=== PATIENT | male | born 1970 | race Caucasian/White ===

== ENCOUNTER 2017-10-27 08:26 | Emergency (ER) | payer MEDICARE, MEDICAID ==
[~2017-10-27] VITALS: Ht 165.1 cm; Wt 66.9 kg
[2017-10-27 10:01] LABS: PATH.CAST-FLAG NOT PRESENT; SPERM-FLAG NOT PRESENT; SRC-FLAG NOT PRESENT; XTAL-FLAG NOT PRESENT; YLC-FLAG NOT PRESENT
[2017-10-27] MEDS ORDERED: FLUO10CA7 PO (10:48)
[2017-10-27] MEDS ORDERED: ARIP10TA33 PO (10:48)
[2017-10-27] MEDS ORDERED: LISI-167 PO (10:48)
[2017-10-27] MEDS ORDERED: GABA300C10 PO ×2 (10:48)
[2017-10-27 10:55] VITALS: BP 150/93
== END 2017-10-27 11:34 | disposition home or self-care (01) ==
LOC: ED 10:17
DX: J20.8 Acute bronchitis due to other specified organisms (principal); B96.89 Other specified bacterial agents as the cause of diseases classified elsewhere; R31.0 Gross hematuria; I10 Essential (primary) hypertension; F32.9 Major depressive disorder, single episode, unspecified
CPT/HCPCS: 71020; 81001; 99285

== ENCOUNTER 2017-11-03 16:21 | Inpatient (IN) | payer MEDICARE, MEDICAID ==
[~2017-11-03] VITALS: Ht 175.3 cm; Wt 64.7 kg
[~2017-11-03 16:21] MED LIST: ARIP10TA33 PO; FLUO10CA7 PO; GABA300C10 PO; LISI-167 PO
[2017-11-03] MEDS ORDERED: SODIUM CHLORIDE 0.9% 1,000 ML IV ONE (16:46)
[2017-11-03] MEDS ORDERED: AMPICILLIN/SULBACTAM 3 GM in SODIUM CHLORIDE 0.9% 100 ML IVPB ONE (17:00)
[2017-11-03] MEDS ORDERED: SODIUM CHLORIDE 0.9% 1,000ML IVBOLUS ONE (17:00)
[2017-11-03] MEDS ORDERED: VANCOMYCIN 1,400 MG in SODIUM CHLORIDE 0.9% 250 ML IV ONE (17:00)
[2017-11-03] MEDS ORDERED: VANCOMYCIN PER PHARMACY MC ONE (17:00)
[2017-11-03] MEDS ORDERED: ACETAMINOPHEN 500 MG TABLET PO ONE (17:00)
[2017-11-03 17:18] LABS: MEAN CORPUSCULAR HEMOGLOBIN 29.5 pg (27.5-34.5); MEAN CORPUSCULAR HGB CONC 33.1 g/dL (33.2-36.2); MEAN CORPUSCULAR VOLUME 89.2 fL (81-97); MEAN PLATELET VOLUME 8.3 fL (7.4-10.4); PLATELET COUNT 285 x10^3/uL (130-400); RED BLOOD COUNT 4.25 x10^6/uL (4.38-5.82); RED CELL DISTRIBUTION WIDTH 13.7 % (9.4-14.8)
[2017-11-03 17:30] LABS: ALBUMIN 2.9 g/dL (3.4-5.0); ANION GAP 8 mmol/L (5-15); CALCIUM 8.4 mg/dL (8.5-10.1); CHLORIDE 96 mmol/L (98-107)
[2017-11-03] MEDS ORDERED: ACETAMINOPHEN 500 MG TABLET ONE (17:46)
[2017-11-03 17:49] LABS: MD YES
[2017-11-03 17:51] LABS: BAND#(MANUAL) 0.35 x10^3/uL; BANDS%(MANUAL) 2 % (0-7); LYMPH#(MANUAL) 1.76 x10^3/uL (1-3.4); LYMPHS% (MANUAL) 10 % (22-44); MONOS% (MANUAL) 4 % (2-9); SEG#(MANUAL) 14.78 x10^3/uL (1.8-6.8); SEGS% (MANUAL) 84 % (42-75)
[2017-11-03 17:52] LABS: ANISOCYTOSIS 1+
[2017-11-03 17:53] LABS: <PLATELET ESTIMATE> ADEQUATE; <PLT MORPHOLOGY> NORMAL PLT MORPH; TOXIC GRAN 1+
[2017-11-03] MEDS ORDERED: DIPHENHYDRAMINE 50 MG/ML, 1ML ONE (18:03)
[2017-11-03] MEDS ORDERED: FAMOTIDINE 20 MG/2 ML ONE (18:04)
[2017-11-03] MEDS ORDERED: FAMOTIDINE 20 MG/2 ML IVPush ONE (18:30)
[2017-11-03] MEDS ORDERED: DIPHENHYDRAMINE 50 MG/ML, 1ML IVPush ONE (18:30)
[2017-11-03 19:10] LABS: TROPONIN I < 0.015 ng/mL (0.000-0.045)
[2017-11-03 21:30] VITALS: BP 121/78
[2017-11-03] MEDS ORDERED: ONDANSETRON ODT 4 MG PO PRN (22:00)
[2017-11-03] MEDS ORDERED: hydrALAzine 20 MG/ML, 1ML IVPush PRN (22:00)
[2017-11-03] MEDS ORDERED: DIPHENHYDRAMINE 25 MG CAPSULE PO PRN (22:00)
[2017-11-03] MEDS ORDERED: DOCUSATE 100 MG CAPSULE PO PRN (22:00)
[2017-11-03] MEDS ORDERED: AMPICILLIN/SULBACTAM 3 GM IM SCH (23:00)
[2017-11-03 23:43] LABS: MICROSCOPIC INDICATED
[2017-11-03 23:51] LABS: CULTURE INDICATED? NO
[2017-11-04] MEDS: ENOXAPARIN 40 MG/0.4 ML SQ SCH ×2 (00:10→21:55)
[2017-11-04] MEDS: NICOTINE 14MG/24 HR PATCH.TD24 TD SCH ×2 (00:11→21:55)
[2017-11-04] MEDS ORDERED: AMPICILLIN/SULBACTAM 3 GM in SODIUM CHLORIDE 0.9% 100 ML IV SCH (00:30)
[2017-11-04] MEDS: GUAIFENESIN/DM 100-10MG, 5ML UDC PO PRN ×2 (00:49→05:29)
[2017-11-04] MEDS: AMPICILLIN/SULBACTAM 3 GM in SODIUM CHLORIDE 0.9% 100 ML IV SCH ×3 (00:49→16:40)
[2017-11-04 02:40] VITALS: BP 126/87
[2017-11-04] MEDS: ACETAMINOPHEN 325 MG TABLET PO PRN ×3 (05:29→21:56)
[2017-11-04] MEDS ORDERED: PNEUMOCOCCAL 23 VACCINE IM-VACC ONE (06:30)
[2017-11-04] MEDS ORDERED: FLU VACC QS2017-18 (36MOS+) UP/PF 0.5 ML IM-VACC ONE (06:30)
[2017-11-04] MEDS ORDERED: AMPICILLIN/SULBACTAM 3 GM IVPB SCH (07:00)
[2017-11-04 08:05] VITALS: BP 126/88
[2017-11-04 14:00] VITALS: BP 137/65
[2017-11-04] MEDS: SODIUM CHLORIDE 0.9% 1,000 ML IV SCH (15:15)
[2017-11-04 19:20] VITALS: BP 133/91
[2017-11-05] MEDS: AMPICILLIN/SULBACTAM 3 GM in SODIUM CHLORIDE 0.9% 100 ML IV SCH ×3 (00:42→17:02)
[2017-11-05 00:43] VITALS: BP 143/96
[2017-11-05 05:27] LABS: BASOPHILS % (AUTO) 0 % (0-1); EOSINOPHILS # (AUTO) 0.19 x10^3/uL (0-0.4); EOSINOPHILS % (AUTO) 2 % (1-7); LYMPHOCYTES # (AUTO) 0.92 x10^3/uL (1-3.4); LYMPHOCYTES % (AUTO) 8 % (22-44); MD NO; MEAN CORPUSCULAR HEMOGLOBIN 29.8 pg (27.5-34.5); MEAN CORPUSCULAR HGB CONC 33.4 g/dL (33.2-36.2); MEAN CORPUSCULAR VOLUME 89.2 fL (81-97); MEAN PLATELET VOLUME 8.1 fL (7.4-10.4); MONOCYTES # (AUTO) 0.72 x10^3/uL (0.2-0.8); MONOCYTES % (AUTO) 6 % (2-9); NEUTROPHILS # (AUTO) 10.53 x10^3/uL (1.8-6.8); NEUTROPHILS % (AUTO) 85 % (42-75); PLATELET COUNT 257 x10^3/uL (130-400); RED BLOOD COUNT 4.02 x10^6/uL (4.38-5.82); RED CELL DISTRIBUTION WIDTH 14.1 % (9.4-14.8)
[2017-11-05 05:33] LABS: ANION GAP 7 mmol/L (5-15); CALCIUM 8.3 mg/dL (8.5-10.1); CHLORIDE 104 mmol/L (98-107); CREATININE 0.87 mg/dL (0.7-1.3)
[2017-11-05] MEDS: SODIUM CHLORIDE 0.9% 1,000 ML IV SCH ×2 (05:58→18:11)
[2017-11-05 08:17] VITALS: BP 139/100
[2017-11-05] MEDS ORDERED: MAGNESIUM SULFATE PMX 2GM/50ML 50 ML IV ONE (09:30)
[2017-11-05 14:29] VITALS: BP 144/99
[2017-11-05] MEDS: ACETAMINOPHEN 325 MG TABLET PO PRN (18:13)
[2017-11-05 19:37] VITALS: BP 134/88
[2017-11-05] MEDS: ENOXAPARIN 40 MG/0.4 ML SQ SCH (21:03)
[2017-11-05] MEDS: NICOTINE 14MG/24 HR PATCH.TD24 TD SCH (21:04)
[2017-11-06] MEDS: AMPICILLIN/SULBACTAM 3 GM in SODIUM CHLORIDE 0.9% 100 ML IV SCH ×3 (00:49→17:18)
[2017-11-06] MEDS ORDERED: PROMETHAZINE 25 MG/ML, 1ML IM PRN (01:00)
[2017-11-06 03:04] VITALS: BP 145/98
[2017-11-06] MEDS: SODIUM CHLORIDE 0.9% 1,000 ML IV SCH ×2 (03:54→14:10)
[2017-11-06 07:35] VITALS: BP 139/98
[2017-11-06 14:00] VITALS: BP 143/94
[2017-11-06] MEDS: NICOTINE 14MG/24 HR PATCH.TD24 TD SCH (21:54)
[2017-11-06] MEDS: ENOXAPARIN 40 MG/0.4 ML SQ SCH (21:54)
[2017-11-06 21:58] VITALS: BP 147/93
[2017-11-07] MEDS: SODIUM CHLORIDE 0.9% 1,000 ML IV SCH (00:34)
[2017-11-07] MEDS: AMPICILLIN/SULBACTAM 3 GM in SODIUM CHLORIDE 0.9% 100 ML IV SCH ×2 (00:34→08:45)
[2017-11-07 03:45] VITALS: BP 135/93
[2017-11-07 07:21] VITALS: BP 148/94
[2017-11-07] MEDS ORDERED: AMOX1TAB64 PO (08:51)
== END 2017-11-07 11:41 | disposition home or self-care (01) | DRG 871 ==
LOC: ED 17:35 → EDIP 19:14 → 4EST 20:06 → 4NOR 11-05 06:54 → DCLOUNGE 11-07 11:15
PROVIDERS: ADMIT Surgery; ATTEND Hospitalist
DX: A41.9 Sepsis, unspecified organism (principal); E43 Unspecified severe protein-calorie malnutrition; L03.115 Cellulitis of right lower limb; F33.9 Major depressive disorder, recurrent, unspecified; E87.1 Hypo-osmolality and hyponatremia; F17.290 Nicotine dependence, other tobacco product, uncomplicated; I10 Essential (primary) hypertension; E83.42 Hypomagnesemia; D64.9 Anemia, unspecified; F12.90 Cannabis use, unspecified, uncomplicated; F40.00 Agoraphobia, unspecified; J20.9 Acute bronchitis, unspecified; Z80.8 Family history of malignant neoplasm of other organs or systems; F45.22 Body dysmorphic disorder; Z79.899 Other long term (current) drug therapy; Z68.21 Body mass index [BMI] 21.0-21.9, adult
CPT/HCPCS: 36415; 71010; 80048; 81001; 82040; 83605; 83735; 84145; 84484; 85025; 87040; 90686; 90732; 93005; 96365; 96366; 96368; 96375; J0295; J1650; J2550; J3370; Q0162; J1200; J3475; J7030; J7050; Q0163; S0028

== ENCOUNTER 2017-11-26 14:48 | Emergency (ER) | payer MEDICAID, MEDICARE ==
[~2017-11-26] VITALS: Ht 165.1 cm; Wt 64.0 kg
[~2017-11-26 14:48] MED LIST changes: +AMOX1TAB64 PO
[2017-11-26 14:49] VITALS: BP 148/98
[2017-11-26] MEDS ORDERED: METHOCARBAMOL 750 MG TABLET ONE (15:59)
[2017-11-26] MEDS ORDERED: METHOCARBAMOL 750 MG TABLET PO ONE (16:00)
== END 2017-11-26 16:02 | disposition home or self-care (01) ==
LOC: ED 15:45
DX: M25.532 Pain in left wrist (principal)
CPT/HCPCS: 99284

== ENCOUNTER 2018-04-08 09:06 | Emergency (ER) | payer MEDICARE ==
[~2018-04-08] VITALS: Ht 162.6 cm; Wt 66.0 kg
[2018-04-08 09:52] LABS: BASOPHILS # (AUTO) 0.07 x10^3/uL (0-0.1); BASOPHILS % (AUTO) 1 % (0-1); EOSINOPHILS # (AUTO) 0.62 x10^3/uL (0-0.4); EOSINOPHILS % (AUTO) 6 % (1-7); LYMPHOCYTES # (AUTO) 2.07 x10^3/uL (1-3.4); LYMPHOCYTES % (AUTO) 20 % (22-44); MD NO; MEAN CORPUSCULAR HEMOGLOBIN 29.5 pg (27.5-34.5); MEAN CORPUSCULAR HGB CONC 34.2 g/dL (33.2-36.2); MEAN CORPUSCULAR VOLUME 86.2 fL (81-97); MEAN PLATELET VOLUME 7.8 fL (7.4-10.4); MONOCYTES # (AUTO) 0.65 x10^3/uL (0.2-0.8); MONOCYTES % (AUTO) 6 % (2-9); NEUTROPHILS # (AUTO) 6.88 x10^3/uL (1.8-6.8); NEUTROPHILS % (AUTO) 67 % (42-75); PLATELET COUNT 267 x10^3/uL (130-400); RED BLOOD COUNT 4.24 x10^6/uL (4.38-5.82); RED CELL DISTRIBUTION WIDTH 14.8 % (9.4-14.8)
[2018-04-08] MEDS ORDERED: AMPICILLIN/SULBACTAM 3 GM in SODIUM CHLORIDE 0.9% 100 ML IVPB ONE (11:30)
[2018-04-08] MEDS ORDERED: SODIUM CHLORIDE FLUSH 10ML SYR IVF ONE (11:30)
[2018-04-08 12:51] VITALS: BP 142/92
== END 2018-04-08 13:01 | disposition home or self-care (01) ==
LOC: ED 12:55
DX: L03.113 Cellulitis of right upper limb (principal); I10 Essential (primary) hypertension; F45.22 Body dysmorphic disorder; F32.9 Major depressive disorder, single episode, unspecified; F17.210 Nicotine dependence, cigarettes, uncomplicated
CPT/HCPCS: 36415; 73130; 85025; 96365; 99285; J0295

== ENCOUNTER 2018-07-25 08:50 | Emergency (ER) | payer MEDICARE ==
[~2018-07-25] VITALS: Ht 167.6 cm; Wt 64.2 kg
[2018-07-25 08:58] VITALS: BP 169/100
== END 2018-07-25 09:59 | disposition home or self-care (01) ==
LOC: ED 09:45
DX: H60.501 Unspecified acute noninfective otitis externa, right ear (principal); I10 Essential (primary) hypertension; Z76.0 Encounter for issue of repeat prescription
CPT/HCPCS: 99283

== ENCOUNTER 2018-08-08 07:03 | Emergency (ER) | payer MEDICARE ==
[~2018-08-08] VITALS: Ht 167.6 cm; Wt 66.7 kg
[2018-08-08] MEDS ORDERED: ERYTHROMYCIN OPHTH 0.5%, 1GM RIGHTEYE ONE (07:30)
[2018-08-08 08:07] VITALS: BP 159/98
== END 2018-08-08 08:09 | disposition home or self-care (01) ==
LOC: ED 08:03
DX: H10.021 Other mucopurulent conjunctivitis, right eye (principal); I10 Essential (primary) hypertension; F17.200 Nicotine dependence, unspecified, uncomplicated; Z88.1 Allergy status to other antibiotic agents
CPT/HCPCS: 99283

== ENCOUNTER 2018-10-31 22:58 | Emergency (ER) | payer MEDICARE ==
[~2018-10-31] VITALS: Ht 167.6 cm; Wt 69.6 kg
[2018-10-31 23:00] VITALS: BP 195/139
== END 2018-10-31 23:34 | disposition left against medical advice (07) ==
LOC: ED 23:10
DX: K13.79 Other lesions of oral mucosa (principal); Z53.21 Procedure and treatment not carried out due to patient leaving prior to being seen by health care provider

== ENCOUNTER 2018-12-28 14:24 | Emergency (ER) | payer MEDICARE ==
--- NOTE | 2018-12-28 14:40 | NUR ---
PT NOT IN LOBBY FOR VITALS @ [id number]
--- NOTE | 2018-12-28 14:50 | NUR ---
PT NOT IN LOBBY FOR VITALS @ [id number]
== END 2018-12-28 17:11 | disposition left against medical advice (07) ==
LOC: ED 17:05
DX: S69.91XA Unspecified injury of right wrist, hand and finger(s), initial encounter (principal); Z53.21 Procedure and treatment not carried out due to patient leaving prior to being seen by health care provider

== ENCOUNTER 2019-12-08 14:32 | Emergency (ER) | payer SELFPAY ==
[~2019-12-08] VITALS: Ht 165.1 cm; Wt 70.0 kg
[2019-12-08 14:34] VITALS: BP 155/119
--- NOTE | 2019-12-08 15:52 | NUR ---
pt ambulated to the bathroom and returned to room. pt here for "hearing problems"
[2019-12-08] MEDS ORDERED: CIPROFLOXACIN/HYDROCORTISONE EAR SUSP 0.2-1%, 10ML RIGHT EAR ONE (16:00)
--- NOTE | 2019-12-08 16:41 | NUR ---
Patient/Caregiver given discharge instructions and they have confirmed that they understand the instructions. PT VERBALIZED UNDERSTANDING TO F/U WITH ENT IN TWO WEEKS OR RETURN TO ER FOR WOUND RECHECK. PT STATED HE WILL FILL SCRIPT AND TAKE MEDICATIONS RECOMMENDED. Patient ambulatory with steady gait.
== END 2019-12-08 21:48 | disposition home or self-care (01) ==
LOC: ED 16:50
DX: H66.001 Acute suppurative otitis media without spontaneous rupture of ear drum, right ear (principal); I10 Essential (primary) hypertension; F17.200 Nicotine dependence, unspecified, uncomplicated
CPT/HCPCS: 99283

== ENCOUNTER 2020-03-27 19:22 | Emergency (ER) | payer MEDICARE, MEDICAID ==
[~2020-03-27] VITALS: Ht 165.1 cm; Wt 65.0 kg
[~2020-03-27 19:22] MED LIST changes: +FLUO10CA14 PO; -FLUO10CA7 PO
[2020-03-27 19:25] VITALS: BP 177/120
== END 2020-03-27 20:22 | disposition home or self-care (01) ==
LOC: ED 20:10
DX: T16.1XXA Foreign body in right ear, initial encounter (principal); T16.2XXA Foreign body in left ear, initial encounter; I10 Essential (primary) hypertension; X58.XXXA Exposure to other specified factors, initial encounter; Y93.89 Activity, other specified; Y92.89 Other specified places as the place of occurrence of the external cause; Y99.8 Other external cause status
CPT/HCPCS: 99281

== ENCOUNTER 2020-09-06 17:11 | Emergency (ER) | payer MEDICARE, MEDICAID ==
[~2020-09-06 17:11] MED LIST changes: +Sulfameth./Trimethoprim Ds PO
--- NOTE | 2020-09-06 18:11 | NUR ---
no answer x 3
== END 2020-09-06 18:13 | disposition left against medical advice (07) ==
LOC: ED 18:00
DX: M79.641 Pain in right hand (principal); Z53.21 Procedure and treatment not carried out due to patient leaving prior to being seen by health care provider

== ENCOUNTER 2020-09-07 15:29 | Emergency (ER) | payer MEDICARE, MEDICAID ==
[~2020-09-07] VITALS: Ht 167.6 cm; Wt 67.0 kg
--- NOTE | 2020-09-07 15:41 | NUR ---
NIL X1
[2020-09-07 15:50] VITALS: BP 134/82
[2020-09-07] MEDS ORDERED: NEOSPORIN OINT. PKT 1 PACKET ONE (16:26)
--- NOTE | 2020-09-07 16:45 | NUR ---
Patient given discharge instructions and they have confirmed that they understand the instructions. Patient ambulatory with steady gait.
== END 2020-09-07 16:50 | disposition home or self-care (01) ==
LOC: ED 16:21
DX: S61.211D Laceration without foreign body of left index finger without damage to nail, subsequent encounter (principal); X58.XXXD Exposure to other specified factors, subsequent encounter
CPT/HCPCS: 99282; 99283

== ENCOUNTER 2020-09-10 11:22 | Emergency (ER) | payer MEDICARE, MEDICAID ==
[~2020-09-10] VITALS: Ht 160 cm; Wt 69.7 kg
[2020-09-10 11:31] VITALS: BP 150/102
[2020-09-10] MEDS ORDERED: NEOSPORIN OINT. PKT 1 PACKET ONE (11:41)
== END 2020-09-10 11:49 | disposition home or self-care (01) ==
LOC: ED 11:43
DX: S61.411D Laceration without foreign body of right hand, subsequent encounter (principal); Z48.02 Encounter for removal of sutures; X58.XXXD Exposure to other specified factors, subsequent encounter
CPT/HCPCS: 99281

== ENCOUNTER 2021-05-05 07:58 | Emergency (ER) | payer MEDICARE, MEDICAID ==
[~2021-05-05] VITALS: Ht 162.6 cm; Wt 70.1 kg
[~2021-05-05 07:58] MED LIST changes: -FLUO10CA14 PO; +FLUO10CA15 PO
--- NOTE | 2021-05-05 08:02 | NUR ---
1ST CALL NOT IN LOBBY
--- NOTE | 2021-05-05 08:19 | NUR ---
AMY KEITH BEDSIDE. PT C/O RIGHT, POSTERIOR SHOULDER PAIN, ITCHING, AND SWELLING. PT STATES HE HAS HAD THE SYMPTOMS X 2 DAYS. PT DENIES OTHR PHYSICAL SYMPTOMS.
[2021-05-05 08:32] VITALS: BP 124/74
== END 2021-05-05 08:34 | disposition home or self-care (01) ==
LOC: ED 08:20
DX: L02.212 Cutaneous abscess of back [any part, except buttock and flank] (principal); I10 Essential (primary) hypertension
CPT/HCPCS: 99283

== ENCOUNTER 2021-05-23 12:22 | Emergency (ER) | payer MEDICAID, MEDICARE ==
[~2021-05-23] VITALS: Ht 165.1 cm; Wt 75.0 kg
--- NOTE | 2021-05-23 12:35 | NUR ---
JODI AFTER PT RAN OUT OF [facility] X 4 DAYS AND NOW REPORTS HE FEELS LIKE HIS BLOOD PRESSURE IS HIGH AND HAS BEEN SOB AND HAS SOME BLURRY VISON. DENIES MARCOS AND FLU LIKE SYMPTOMS. BP 170/125 PER EMS ON ROUTE. PT TO BED WITH STEADY GAIT. ATTACHED TO MONITORS AND POSTIONED TO COMFORT. LEXX. DULCE. AWAITING ORDERS.
[2021-05-23] MEDS ORDERED: LISINOPRIL 20 MG TABLET ONE (13:22)
--- NOTE | 2021-05-23 13:24 | NUR ---
PT MEDICATED PER EMAR.
[2021-05-23] MEDS ORDERED: LISINOPRIL 20 MG TABLET PO ONE (13:30)
[2021-05-23 14:30] VITALS: BP 150/109
--- NOTE | 2021-05-23 14:41 | NUR ---
Patient given discharge instructions and they have confirmed that they understand the instructions. Patient ambulatory with steady gait. NAD, all questions answered appropriately, denies additional needs at this time. No personal belongings left in room after discharge.
== END 2021-05-23 14:44 | disposition home or self-care (01) ==
LOC: ED 14:09
DX: I10 Essential (primary) hypertension (principal); R06.02 Shortness of breath; H57.89 Other specified disorders of eye and adnexa; Z76.0 Encounter for issue of repeat prescription; R00.0 Tachycardia, unspecified
CPT/HCPCS: 93005; 99283

== ENCOUNTER 2021-06-22 12:25 | Emergency (ER) | payer MEDICARE ==
[~2021-06-22] VITALS: Ht 165.1 cm; Wt 65.3 kg
--- NOTE | 2021-06-22 15:55 | NUR ---
TO ROOM FROM LOBBY.
--- NOTE | 2021-06-22 16:11 | NUR ---
PT TO ROOM 18 W/ C/O LOWER PELVIC ABD PAIN STTRATED 2 DAYS AGO. PT HAS PAIN BILAT FLANK ON PALPATION. PT STATES HE BELIEVES HE HAS A UTI. DENIES ANY FEVERS/CHILLS. PT RESTING ON GURNEY. NADN. MONITORS APPLIED. VSS. WARM BLANKET PROVIDED. CALL LIGHT IN REACH.
[2021-06-22 16:43] LABS: MICROSCOPIC INDICATED
--- NOTE | 2021-06-22 17:08 | NUR ---
PT CHART REVIEWED AND PLACED FOR RECHECK.
[2021-06-22 17:11] VITALS: BP 136/95
--- NOTE | 2021-06-22 17:11 | NUR ---
PT RESTING ON GURNEY. NADN. HALLMAN.
== END 2021-06-22 18:01 | disposition home or self-care (01) ==
LOC: ED 13:53
DX: N30.01 Acute cystitis with hematuria (principal); R30.0 Dysuria; Z59.0 Homelessness; I10 Essential (primary) hypertension
CPT/HCPCS: 81001; 87086; 99283

== ENCOUNTER 2021-07-06 13:31 | Emergency (ER) | payer MEDICARE, MEDICAID ==
[~2021-07-06] VITALS: Ht 165.1 cm; Wt 80.0 kg
[~2021-07-06 13:31] MED LIST changes: +TAMS-11 PO
[2021-07-06 13:34] VITALS: BP 116/74
--- NOTE | 2021-07-06 14:40 | NUR ---
pt resting on gurney with eyes closed. no apaprent resp. distress. no family at bedside. pt has dominique in place to drainage.
--- NOTE | 2021-07-06 15:13 | NUR ---
report to Elvira IY
--- NOTE | 2021-07-06 15:29 | NUR ---
PT DISCHARGED. PT STATES HE THINKS HE NEEDS TO STAY IN HOSPITAL. POC AND PREVIOUS DC PAPERWORK EXPLAINED. [facility] [facility] TAUGHT. PT CONTINUES TO SHAKE HEAD DURING INSTRUCTIONS AND STATES "I CAN'T DO IT". PT REPORTS HE LIVES AT ALF AND WANTS TO STAY IN HOSPITAL LONGER. REPETITIVE DC INSTRUCTS PROVIDED. PT STATES "I'M JUST GOING TO CHECK MYSELF BACK IN". PT TO DC DESK VIA WC. TURNTABLE OPERATOR AND PROPERTY CLAIM REP NOTIFIED OF PT DISPOSITION AND STATEMENTS.
== END 2021-07-06 15:34 | disposition home or self-care (01) ==
LOC: ED 14:16
DX: N13.9 Obstructive and reflux uropathy, unspecified (principal); R42 Dizziness and giddiness; Z87.891 Personal history of nicotine dependence
CPT/HCPCS: 99281